=== PATIENT | male | born 1960 | race Caucasian/White ===

== ENCOUNTER → 2017-07-10 | Outpatient (CLI) | payer BC ==
[~2017-07-10] MED LIST: ASPI325T39 PO; [UNRECOGNIZED DRUG - CODE] TD
--- NOTE | 2017-07-10 13:26 | DIAGNOSTIC IMAGING REPORT ---
L-SPINE MIN 4 VIEWS ROUTINE CLINICAL HISTORY: LOWER BACK PAIN COMPARISON STUDY: No previous studies for comparison. FINDINGS: There is a mild superior endplate L1 deformity which is felt to be old. No acute fractures or traumatic subluxations are visualized. There are minor degenerative changes. No destructive lesions are visualized. 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 No acute fractures or traumatic subluxations are visualized. Electronically signed by: Landon Nuñez M.D. 07/10/2017 1:24 PM Dictated Date/Time: 07/10/2017 1:23 PM
--- NOTE | 2017-07-10 13:28 | DIAGNOSTIC IMAGING REPORT ---
R KNEE 1 OR 2 VIEWS ROUTINE CLINICAL HISTORY: 57 years-old Male presenting with KNEE PAIN. TECHNIQUE: Frontal and lateral views of the right knee were obtained. COMPARISON: None. FINDINGS: No acute fracture or malalignment. No knee joint effusion. No advanced degenerative change evident. No radiographic soft tissue abnormality. IMPRESSION: No osseous injury of the right knee. Electronically signed by: Ryan Lizama M.D. 07/10/2017 1:26 PM Dictated Date/Time: 07/10/2017 1:26 PM
--- NOTE | 2017-07-10 13:37 | DIAGNOSTIC IMAGING REPORT ---
SI JOINTS 3 OR MORE VIEWS HISTORY: 57 years-old Male LOW BACK PAIN acute low back pain without reported trauma COMPARISON: Lumbar spine radiographs 07/10/2017 TECHNIQUE: 3 views of the SI joints FINDINGS: There are mild degenerative changes of the bilateral SI joints. No erosive changes to suggest sacroiliitis. No acute fracture or dislocation. Imaged pelvic bones also appear intact. Probable phleboliths of the pelvis. IMPRESSION: No acute fracture or subluxation. The above report was generated using voice recognition software. It may contain grammatical, syntax or spelling errors. Electronically signed by: Cedric Moon M.D. 07/10/2017 1:35 PM Dictated Date/Time: 07/10/2017 1:33 PM
--- NOTE | 2017-07-10 14:07 | DIAGNOSTIC IMAGING REPORT ---
LEFT HAND 3 VIEWS CLINICAL HISTORY: Left hand pain. No reported history of trauma. FINDINGS: 3 views of left hand are obtained. No prior studies are available for comparison at the time of dictation. The skeletal structures are well mineralized. No fracture is identified. The joint spaces of the hand are maintained. No erosive change is seen. The overlying soft tissues are within normal limits. IMPRESSION: No acute bony abnormality is identified. Electronically signed by: Brian Mejia M.D. 07/10/2017 2:05 PM Dictated Date/Time: 07/10/2017 2:01 PM
== END | disposition home or self-care (01) ==
LOC: C.RAD 12:27
DX: M25.561 Pain in right knee (principal); M54.9 Dorsalgia, unspecified; M19.90 Unspecified osteoarthritis, unspecified site

== ENCOUNTER → 2017-07-16 | Outpatient (CLI) | payer BC ==
--- NOTE | 2017-07-16 11:29 | DIAGNOSTIC IMAGING REPORT ---
MRI THE RIGHT KNEE NO CONTRAST CLINICAL HISTORY: Chronic right knee pain COMPARISON STUDY: L radiographic study dated 07/10/2017 FINDINGS: Imaging was performed in sagittal, axial, and coronal planes. There is no evidence of a pathologic joint effusion. There are no areas of marrow edema to indicate occult fracture or bone bruise. The quadriceps and patellar tendons appear intact. The anterior and posterior cruciate ligaments appear intact. The medial and lateral patellar retinacular structures appear intact. The medial and lateral collateral ligaments appear intact. There is a linear increased signal within the posterior horn the medial meniscus. This likely but does not definitively reach the inferior meniscal surface. A true meniscal tear is favored. No tears a lateral meniscus are visualized. IMPRESSION: 1. Probable but not definite horizontal tear of the posterior horn the medial meniscus 2. No evidence of cruciate or collateral ligament disruption. Electronically signed by: Landon Nuñez M.D. 07/16/2017 11:28 AM Dictated Date/Time: 07/16/2017 11:23 AM
== END | disposition home or self-care (01) ==
LOC: C.MRI 10:32
DX: M25.561 Pain in right knee (principal); M24.661 Ankylosis, right knee; M23.203 Derangement of unspecified medial meniscus due to old tear or injury, right knee